=== PATIENT | female | born 1995 | race Caucasian/White ===

== ENCOUNTER → 2020-01-26 | Emergency (ER) | payer OTHER ==
[~2020-01-26] VITALS: Ht 147.3 cm; Wt 57.6 kg
== END | disposition left against medical advice (07) ==
LOC: ER 14:11
DX: Z53.20 Procedure and treatment not carried out because of patient's decision for unspecified reasons (principal)

== ENCOUNTER 2023-04-29 13:55 | Emergency (ER) | payer OTHER ==
[~2023-04-29] VITALS: Ht 147.3 cm; Wt 63.5 kg
== END 2023-04-29 15:56 | disposition home or self-care (01) ==
LOC: ER 13:55
DX: K80.20 Calculus of gallbladder without cholecystitis without obstruction (principal); Z88.8 Allergy status to other drugs, medicaments and biological substances

== ENCOUNTER 2023-04-30 07:50 | Outpatient (CLI) | payer OTHER | END 2023-04-30 08:01 | disposition home or self-care (01) | LOC: SONOGRAMA 07:50 | DX: K80.20 Calculus of gallbladder without cholecystitis without obstruction (principal) ==

== ENCOUNTER 2023-07-12 08:14 | Emergency (ER) | payer OTHER ==
[~2023-07-12] VITALS: Ht 147.3 cm; Wt 63.5 kg
== END 2023-07-12 11:42 | disposition home or self-care (01) ==
LOC: ER 08:14
DX: O20.9 Hemorrhage in early pregnancy, unspecified (principal); Z3A.01 Less than 8 weeks gestation of pregnancy

== ENCOUNTER 2023-08-12 08:50 | Outpatient (CLI) | payer OTHER | END 2023-08-12 12:07 | disposition home or self-care (01) | LOC: PRENATAL 08:50 | PROVIDERS: ATTEND Obstetrics & Gynecology Maternal & Fetal Medicine | DX: O36.80X0 Pregnancy with inconclusive fetal viability, not applicable or unspecified (principal); Z36.9 Encounter for antenatal screening, unspecified; Z36.82 Encounter for antenatal screening for nuchal translucency; Z3A.12 12 weeks gestation of pregnancy ==

== ENCOUNTER 2023-10-08 12:49 | Outpatient (CLI) | payer OTHER | END 2023-10-08 12:56 | disposition home or self-care (01) | LOC: PRENATAL 12:49 | PROVIDERS: ATTEND Obstetrics & Gynecology Maternal & Fetal Medicine | DX: O35.9XX0 Maternal care for (suspected) fetal abnormality and damage, unspecified, not applicable or unspecified (principal); O35.3XX0 Maternal care for (suspected) damage to fetus from viral disease in mother, not applicable or unspecified; O44.00 Complete placenta previa NOS or without hemorrhage, unspecified trimester; Z3A.20 20 weeks gestation of pregnancy ==

== ENCOUNTER 2023-12-27 09:22 | Outpatient (CLI) | payer OTHER ==
[2023-12-27] MEDS ORDERED: CELESTONE S6 MG/1 ML IM (11:23)
[2023-12-27] MEDS ORDERED: [UNRECOGNIZED DRUG - SUPPLY] IM (11:34)
== END 2023-12-27 09:24 | disposition home or self-care (01) ==
LOC: PRENATAL 09:22
PROVIDERS: ATTEND Obstetrics & Gynecology Maternal & Fetal Medicine
DX: O35.9XX0 Maternal care for (suspected) fetal abnormality and damage, unspecified, not applicable or unspecified (principal); O35.3XX0 Maternal care for (suspected) damage to fetus from viral disease in mother, not applicable or unspecified; O44.00 Complete placenta previa NOS or without hemorrhage, unspecified trimester; O98.919 Unspecified maternal infectious and parasitic disease complicating pregnancy, unspecified trimester; Z3A.19 19 weeks gestation of pregnancy

== ENCOUNTER 2023-12-31 13:47 | Inpatient (IN) | payer OTHER ==
[~2023-12-31] VITALS: Ht 147.3 cm; Wt 64.4 kg
[~2023-12-31 13:47] MED LIST: CELESTONE S6 MG/1 ML IM; [UNRECOGNIZED DRUG - SUPPLY] IM
[2023-12-31] MEDS ORDERED: RINGERS SOLUTION,LACTATED 1,000 ML IV SCH (14:00)
[2023-12-31 14:17] LABS: HEMATOCRIT 34.8 % (36.0-45.00); HEMOGLOBIN 11.6 g/dL (12.0-15.00); MEAN CELL VOLUME 84.5 fL (80.00-100.00); MEAN CORPUSCULAR HEMOGLOBIN 28.2 pg (27.00-32.0); MEAN CORPUSCULAR HGB CONC 33.4 g/dl (32.0-36.0); PLATELET COUNT 335 K/uL (150-450); RED BLOOD COUNT 4.12 M/uL (4.00-6.00); RED CELL DISTRIBUTION WIDTH 13.5 % (11.5-14.5)
[2023-12-31 14:20] LABS: URINE APPEARANCE Clear; URINE BILIRRUBIN Negative (NEGATIVE); URINE BLOOD Negative; URINE COLOR Yellow; URINE GLUCOSE Negative (NEGATIVE); URINE LEUKOCYTE Negative; URINE NITRATE Negative; URINE PROTEIN Negative (NEGATIVE); URINE UROBILINOGEN 0.2 E.U./dl
[2023-12-31 14:24] LABS: URINE BACTERIA 2005.5 uL (0.0-1933); URINE EPITHELIAL CELLS 7.8 uL (0.0-38.8)
[2023-12-31] MEDS ORDERED: PRENATAL TABLE1 EAC1 PO (14:40)
[2023-12-31 14:43] LABS: CALCIUM 9.2 mg/dL (8.5-10.1); CREATININE SERUM 0.32 mg/dL (0.55-1.02); GFR 244.13; POTASSIUM 4.13 mEq/L (3.5-5.1)
[2023-12-31 14:54] LABS: URINE RBC 1.1 uL (0.0-20.8)
[2024-01-01] MEDS ORDERED: ACETAMINOPHEN 500 MG GEL..CAP PO ONE ×4 (06:31→18:30)
[2024-01-01] MEDS ORDERED: NIFEDIPINE 30 MG TAB.SA.OSM PO SCH (09:00)
[2024-01-03] MEDS ORDERED: PNV,CALCIUM 72/IRON/FOLIC ACID 1 TAB TABLET PO SCH (10:44)
[2024-01-13] MEDS ORDERED: LIDOCAINE HCL 1%/Epi 20ML VIAL IJ ONE (16:28)
[2024-01-14] MEDS ORDERED: BETAMETHASONE ACETATE,SOD PHOS 30 MG/5 ML ML IM SCH (15:30)
[2024-01-16] MEDS ORDERED: CEFAZOLIN SODIUM 1,000 MG VIAL ONE (15:43)
[2024-01-16] MEDS ORDERED: OXYTOCIN 1,000 ML IV SCH (16:30)
[2024-01-16] MEDS ORDERED: MORPHINE SULFATE 4 MG/ML CARTRIDGE IV PRN (16:30)
[2024-01-16] MEDS ORDERED: RINGERS SOLUTION,LACTATED 1,000 ML IV SCH (16:30)
[2024-01-16] MEDS ORDERED: OXYTOCIN 10 UNITS/ML VIAL IV ONE (16:45)
[2024-01-16] MEDS ORDERED: CEFAZOLIN SODIUM 1,000 MG VIAL IV ONE (17:00)
[2024-01-16] MEDS ORDERED: MORPHINE SULFATE 4 MG in 0.9 % SODIUM CHLORIDE 9 ML IV PRN (17:00)
[2024-01-16] MEDS ORDERED: ERYTHROMYCIN BASE 1 GM TUBE OP ONE (17:00)
[2024-01-16] MEDS ORDERED: MEPERIDINE HCL/PF 25 MG/ML VIAL IV PRN (17:00)
[2024-01-16] MEDS ORDERED: DOCUSATE SODIUM 100MG CAP PO SCH (17:00)
[2024-01-16] MEDS ORDERED: ONDANSETRON HCL 2 MG/ML VIAL IV PRN (17:00)
[2024-01-16] MEDS ORDERED: SIMETHICONE 125 MG CAPSULE PO SCH (18:00)
[2024-01-16 22:51] LABS: ABG PH 7.333 (7.35-7.45); ABG PO2 33.6 mmHg (80-100); ABG pCO2 42.3 mmHg (35-45); BASE EXCESS -3.8 mmol/l; BICARBONATE 21.9 mmol/l (23-25); Tco2 23.2 mmol/l; o2 21 %
[2024-01-16 23:30] LABS: HEMATOCRIT 33.6 % (36.0-45.00); MEAN CELL VOLUME 84.9 fL (80.00-100.00); MEAN CORPUSCULAR HGB CONC 33.3 g/dl (32.0-36.0); PLATELET COUNT 349 K/uL (150-450); RED BLOOD COUNT 3.96 M/uL (4.00-6.00); RED CELL DISTRIBUTION WIDTH 14.9 % (11.5-14.5)
[2024-01-16 23:31] LABS: HEMOGLOBIN 11.2 g/dL (12.0-15.00); MEAN CORPUSCULAR HEMOGLOBIN 28.2 pg (27.00-32.0)
[2024-01-17] MEDS ORDERED: IBUprofen 800 MG TABLET PO PRN (09:00)
== END 2024-01-19 19:31 | disposition home or self-care (01) | DRG 786 ==
LOC: OBS/DEL 13:47 → LDR 01-01 08:22 → OB/GYN 01-01 08:22
PROVIDERS: ADMIT Obstetrics & Gynecology; ATTEND Obstetrics & Gynecology
PROC: 4A1HXCZ Monitoring of Products of Conception, Cardiac Rate, External Approach (ICD-10-PCS; 2024-01-01)
PROC: BY4FZZZ Ultrasonography of Third Trimester, Single Fetus (ICD-10-PCS; 2024-01-07)
PROC: BY4FZZZ Ultrasonography of Third Trimester, Single Fetus (ICD-10-PCS; 2024-01-14)
PROC: 10D00Z1 Extraction of Products of Conception, Low, Open Approach (ICD-10-PCS; principal; 2024-01-17)
DX: O36.5930 Maternal care for other known or suspected poor fetal growth, third trimester, not applicable or unspecified (principal); O41.1230 Chorioamnionitis, third trimester, not applicable or unspecified; O60.14X0 Preterm labor third trimester with preterm delivery third trimester, not applicable or unspecified; O41.03X0 Oligohydramnios, third trimester, not applicable or unspecified; O32.1XX0 Maternal care for breech presentation, not applicable or unspecified; O75.89 Other specified complications of labor and delivery; O36.8130 Decreased fetal movements, third trimester, not applicable or unspecified; Z3A.32 32 weeks gestation of pregnancy; Z37.0 Single live birth